=== PATIENT | male | born 1975 | race Caucasian/White ===

== ENCOUNTER 2021-05-05 01:30 | Emergency (ER) | payer SELFPAY ==
[~2021-05-05] VITALS: Ht 185.4 cm; Wt 117.9 kg
[2021-05-05 01:32] VITALS: BP 152/110
[2021-05-05] MEDS ORDERED: KETOROLAC 60 MG/2 ML VIAL IM ONE (01:50)
== END 2021-05-05 03:11 | disposition left against medical advice (07) ==
LOC: MED 01:30
DX: G90.09 Other idiopathic peripheral autonomic neuropathy (principal); F17.210 Nicotine dependence, cigarettes, uncomplicated; E11.9 Type 2 diabetes mellitus without complications; Z88.5 Allergy status to narcotic agent; Z71.6 Tobacco abuse counseling
CPT/HCPCS: 96372; 99283; J1885